=== PATIENT | male | born 1955 | race American Indian/Alaskan Native ===

== ENCOUNTER 2017-06-25 06:22 | Emergency (ER) | payer OTHER ==
[2017-06-25] MEDS ORDERED: CATAPRES PO ONE (08:55)
[2017-06-25] MEDS ORDERED: TYLENOL PO ONE (08:55)
--- NOTE | 2017-06-25 08:56 | Emergency Department Report ---
ED General Adult HPI - General Chief complaint: High BP Stated complaint: ELEVATED BP Time Seen by Provider: 06/25/17 08:55 Source: patient, RN notes reviewed Mode of arrival: Ambulatory Limitations: No Limitations - History of Present Illness Initial comments: This is a 62-year-old male, the patient is previously known to this provider. He has a past medical history of hypertension, high cholesterol, COPD, "small stroke." Patient reports that he ran out of medications about a month or so ago , secondary to insurance issues. He presents to the ER requesting refill on his medications, and complains he had a headache. He reports the headache was right-sided and throbbing, it is not global, sudden, or thunderclap in onset. It did not reach maximal intensity within an hour, and it is not the worse headache of his life. There is no leg pain, there is no leg swelling, there is no weakness or numbness, there is no neck pain or neck stiffness. His headache typically improves when he takes his blood pressure medication. He reports the headache today is qualitatively similar to prior headaches that he experiences when he does not have his blood pressure medicine. -: Gradual Location: head Radiation: non-radiation Quality: aching Consistency: intermittent Improves with: medication, rest Worsens with: none Associated Symptoms: headaches. denies: chest pain, shortness of breath, syncope - Related Data Previous Rx's Medication Instructions Recorded Last Taken Type Albuterol Sulfate [Proair 90 mcg IH Q4HR PRN #1 aer.pow.ba 06/25/17 Unknown Rx Respiclick] Amlodipine Besylate [Norvasc] 10 mg PO QDAY #30 tablet 06/25/17 Unknown Rx Aspirin [Adult Low Dose Aspirin EC] 81 mg PO QDAY #30 tablet.dr 06/25/17 Unknown Rx AtorvaSTATin [Lipitor] 40 mg PO QHS #30 tab 06/25/17 Unknown Rx Beclomethasone Dipropionate [Qvar] 8.7 gm IH BID #1 aer.w.adap 06/25/17 Unknown Rx Lisinopril [Zestril TAB] 40 mg PO QDAY #30 tablet 06/25/17 Unknown Rx Naproxen [Naprosyn] 500 mg PO BID PRN #30 tablet 06/25/17 Unknown Rx Allergies Allergy/AdvReac Type Severity Reaction Status Date / Time tramadol [From Ultram] AdvReac Vomiting Verified 06/25/17 09:19 ED Review of Systems ROS: Stated complaint: ELEVATED BP Other details as noted in HPI Constitutional: denies: fever Eyes: denies: eye discharge ENT: denies: epistaxis Respiratory: denies: cough Cardiovascular: denies: chest pain Gastrointestinal: denies: abdominal pain Genitourinary: denies: urgency Musculoskeletal: denies: back pain Skin: denies: lesions Neurological: headache ED Past Medical Hx - Past Medical History Previous Medical History?: Yes Hx Hypertension: Yes Hx CVA: Yes Hx of Cancer: Yes Hx COPD: Yes (Prostate) Additional medical history: kidney disease, - Surgical History Past Surgical History?: Yes Additional Surgical History: back surgery - Social History Smoking Status: Former Smoker - Medications Home Medications: Home Medications Medication Instructions Recorded Confirmed Last Taken Type Albuterol Sulfate [Proair 90 mcg IH Q4HR PRN #1 aer.pow.ba 06/25/17 Unknown Rx Respiclick] Amlodipine Besylate [Norvasc] 10 mg PO QDAY #30 tablet 06/25/17 Unknown Rx Aspirin [Adult Low Dose Aspirin EC] 81 mg PO QDAY #30 tablet.dr 06/25/17 Unknown Rx AtorvaSTATin [Lipitor] 40 mg PO QHS #30 tab 06/25/17 Unknown Rx Beclomethasone Dipropionate [Qvar] 8.7 gm IH BID #1 aer.w.adap 06/25/17 Unknown Rx Lisinopril [Zestril TAB] 40 mg PO QDAY #30 tablet 06/25/17 Unknown Rx Naproxen [Naprosyn] 500 mg PO BID PRN #30 tablet 06/25/17 Unknown Rx ED Physical Exam - General Limitations: No Limitations General appearance: alert, in no apparent distress - Head Head exam: Present: atraumatic, normocephalic - Eye Eye exam: Present: normal appearance, PERRL, EOMI, other (visual acuity intact to finger counting, color perception, reading at a close distance). Absent: nystagmus - ENT ENT exam: Present: normal exam, normal orophraynx, mucous membranes moist, normal external ear exam - Neck Neck exam: Present: normal inspection, full ROM. Absent: tenderness, meningismus - Respiratory Respiratory exam: Present: normal lung sounds bilaterally. Absent: respiratory distress, wheezes, rales, rhonchi, stridor, chest wall tenderness, accessory muscle use, decreased breath sounds, prolonged expiratory - Cardiovascular Cardiovascular Exam: Present: regular rate, normal rhythm, normal heart sounds. Absent: bradycardia, tachycardia, irregular rhythm, systolic murmur, diastolic murmur, rubs, gallop - GI/Abdominal GI/Abdominal exam: Present: soft, normal bowel sounds. Absent: distended, tenderness, guarding, rebound, rigid, pulsatile mass - Rectal Rectal exam: Present: deferred - Extremities Exam Extremities exam: Present: normal inspection, full ROM, normal capillary refill. Absent: pedal edema, joint swelling, calf tenderness - Back Exam Back exam: Present: normal inspection, full ROM. Absent: tenderness, CVA tenderness (R), CVA tenderness (L), muscle spasm, paraspinal tenderness, vertebral tenderness - Neurological Exam Neurological exam: Present: alert, oriented X3, normal gait, other (Extraocular movements intact. Tongue midline. No facial droop. Facial sensation intact to light touch in the V1, V2, V3 distribution bilaterally. 5 and 5 strength in 4 extremities.. Sensation is intact to light touch in 4 extremities.). Absent : motor sensory deficit - Psychiatric Psychiatric exam: Present: normal affect, normal mood - Skin Skin exam: Present: warm, dry, intact, normal color. Absent: rash ED Course Vital Signs 06/25/17 06/25/17 06/25/17 06:27 06:43 08:56 Temperature 97.8 F 97.8 F Pulse Rate 105 H 71 Respiratory 18 17 Rate Blood Pressure 199/134 199/134 Blood Pressure [Left] O2 Sat by Pulse 99 Oximetry 06/25/17 06/25/17 06/25/17 09:00 09:02 09:15 Temperature 98.2 F Pulse Rate 75 74 74 Respiratory 18 20 Rate Blood Pressure 195/116 Blood Pressure 195/116 [Left] O2 Sat by Pulse 100 100 Oximetry 06/25/17 06/25/17 06/25/17 09:16 09:30 09:46 Temperature Pulse Rate 83 64 58 L Respiratory 13 11 L 13 Rate Blood Pressure 195/116 172/111 172/111 Blood Pressure [Left] O2 Sat by Pulse 100 99 97 Oximetry 06/25/17 06/25/17 06/25/17 10:00 10:16 10:24 Temperature 98.2 F Pulse Rate 57 L 58 L 70 Respiratory 11 L 14 18 Rate Blood Pressure 156/104 156/104 Blood Pressure 146/77 [Left] O2 Sat by Pulse 98 99 97 Oximetry 06/25/17 06/25/17 06/25/17 10:30 10:46 11:00 Temperature Pulse Rate 56 L 56 L Respiratory 17 14 13 Rate Blood Pressure 154/101 154/101 157/96 Blood Pressure [Left] O2 Sat by Pulse 98 99 96 Oximetry ED Medical Decision Making - Lab Data Result diagrams: 06/25/17 08:59 Vital Signs 06/25/17 06/25/17 06/25/17 06:27 06:43 08:56 Temperature 97.8 F 97.8 F Pulse Rate 105 H 71 Respiratory 18 17 Rate Blood Pressure 199/134 199/134 Blood Pressure [Left] O2 Sat by Pulse 99 Oximetry 06/25/17 06/25/17 06/25/17 09:00 09:02 09:15 Temperature 98.2 F Pulse Rate 75 74 74 Respiratory 18 20 Rate Blood Pressure 195/116 Blood Pressure 195/116 [Left] O2 Sat by Pulse 100 100 Oximetry 06/25/17 06/25/17 06/25/17 09:16 09:30 10:24 Temperature 98.2 F Pulse Rate 83 64 70 Respiratory 13 11 L 18 Rate Blood Pressure 195/116 172/111 Blood Pressure 146/77 [Left] O2 Sat by Pulse 100 99 97 Oximetry - Radiology Data Radiology results: report reviewed, image reviewed Noncontrast CT scan of the brain is negative for acute disease chronic findings noted. - Medical Decision Making Assessment and plan: 62-year-old male with mild headache associated with hypertension and medication noncompliance, headache is not historically consistent with subarachnoid hemorrhage or stroke, patient has a GCS of 15, with an NIH score of 0, unremarkable neurologic examination, and felt improved after clonidine and acetaminophen. Patient requested one month refill on multiple medications which this provider has filled out. Patient was instructed to follow-up in outpatient primary care doctor, return precautions are reviewed. Critical care attestation.: If time is entered above; I have spent that time in minutes in the direct care of this critically ill patient, excluding procedure time. ED Disposition Clinical Impression: Headache, Elevated blood pressure reading Disposition: DC-01 TO HOME OR SELFCARE Is pt being admited?: No Does the pt Need Aspirin: No Condition: Stable Instructions: Hypertension (ED) Additional Instructions: Continue current outpatient medications. Follow up with the primary care doctor within the next 4-6 weeks. Return to the ER right away with fevers, chills, lethargy, irritability, projectile vomiting, change in mental status Please note that blood pressure was elevated, and you should follow up with a primary care doctor for this is recommended, long-term complications of hypertension and elevated blood pressure include stroke, heart attack, disability, , paralysis, loss of quality of life. Prescriptions: AtorvaSTATin [Lipitor] 40 mg PO QHS #30 tab Albuterol Sulfate [Proair Respiclick] 90 mcg IH Q4HR PRN #1 aer.pow.ba PRN Reason: Wheezing Amlodipine Besylate [Norvasc] 10 mg PO QDAY #30 tablet Aspirin [Adult Low Dose Aspirin EC] 81 mg PO QDAY #30 tablet. Beclomethasone Dipropionate [Qvar] 8.7 gm IH BID #1 aer.w.adap Lisinopril [Zestril TAB] 40 mg PO QDAY #30 tablet Naproxen [Naprosyn] 500 mg PO BID PRN #30 tablet PRN Reason: Pain Referrals: PRIMARY CARE, [Primary Care Provider] - 3-5 Days CHRISTIANO EARL MD [Staff Physician] - 3-5 Days [facility] [Provider Group] - 3-5 Days
--- NOTE | 2017-06-25 09:21 | Cat Scan Report ---
CT HEAD WITHOUT CONTRAST: HISTORY: hypertension,headache. TECHNIQUE: Sequential CT images without contrast. FINDINGS: Images obtained show bilateral prominence of the sulci and ventricles. There are no abnormal intra- or extra-axial blood or fluid collections. There are no focal masses or evidence of mass effect. The davis white matter differentiation appears within normal limits. Regions of periventricular decreased attenuation are consistent with microangiopathic ischemic disease. The posterior fossa structures including the fourth ventricle, cerebellum, and brainstem appear normal. IMPRESSION: Evidence of atrophy and microangiopathic ischemic disease. No acute intracranial process noted.
[2017-06-25 09:34] LABS: Anion Gap 16 mmol/L; BUN/Creatinine Ratio 8; Blood Urea Nitrogen 11 mg/dL (9-20); Calcium 9.3 mg/dL (8.4-10.2); Carbon Dioxide 27 mmol/L (22-30); Chloride 103.5 mmol/L (98-107); Glucose 85 mg/dL (75-100); Potassium 4.3 mmol/L (3.6-5.0); Sodium 142 mmol/L (137-145)
[2017-06-25 11:07] VITALS: BP 157/96
== END 2017-06-25 11:27 | disposition home or self-care (01) ==
LOC: ED 06:22
DX: R51 Headache (principal); I10 Essential (primary) hypertension; I63.9 Cerebral infarction, unspecified; J44.9 Chronic obstructive pulmonary disease, unspecified; Z87.891 Personal history of nicotine dependence; Z79.82 Long term (current) use of aspirin; Z88.1 Allergy status to other antibiotic agents
CPT/HCPCS: 36415; 70450; 80048